=== PATIENT | female | born 1970 ===

== ENCOUNTER 2017-05-25 17:50 | Emergency (ER) | payer OTHER, SELFPAY ==
[2017-05-25 18:11] VITALS: RESP 16
--- NOTE | 2017-05-25 19:32 | ED PDOC ---
HPI: Abdomen Time Seen by Provider: 05/25/17 19:22 Chief Complaint (Nursing): Abdominal Pain History Per: Patient History/Exam Limitations: no limitations Onset/Duration Of Symptoms: Days Current Symptoms Are (Timing): Still Present Location Of Pain/Discomfort: Suprapubic Quality Of Discomfort: Pressure Associated Symptoms: Nausea, Vomiting. denies: Fever, Chills Additional Complaint(s): Hx of fibroids p/w VB since March, states she has been bleeding everyday, but since Tuesday has had to change her pads 4 times, and each time they were moderately soaked. Also feeling weak, tired, doesn't want to get out of bed due to exhaustion. Also w/ occasional nausea and vomiting. No urinary symptoms , no bleeding disorders. Also with cramping lower abdominal pain. Currently on OCPs and Iron pills. Past Medical History Reviewed: Historical Data, Nursing Documentation, Vital Signs Vital Signs: Last Vital Signs Temp 98.4 F 05/25/17 18:07 Pulse 103 H 05/25/17 18:07 Resp 16 05/25/17 18:07 BP 145/80 05/25/17 18:07 Pulse Ox 100 05/25/17 19:33 - Family History Family History: States: Unknown Family Hx - Home Medications Home Medications: Ambulatory Orders Medication Instructions Recorded Ferrous Sulfate 325 mg PO BID #30 tablet 05/25/17 - Allergies Allergies/Adverse Reactions: Allergies Allergy/AdvReac Type Severity Reaction Status Date / Time No Known Allergies Allergy Verified 05/25/17 18:07 Review of Systems ROS Statement: Except As Marked, All Systems Reviewed And Found Negative Gastrointestinal: Positive for: Abdominal Pain Genitourinary Female: Positive for: Vaginal Bleeding Physical Exam - Reviewed Nursing Documentation Reviewed: Yes Vital Signs Reviewed: Yes - Physical Exam Appears: Positive for: Well, Non-toxic, No Acute Distress, Uncomfortable Head Exam: Positive for: ATRAUMATIC, NORMAL INSPECTION, NORMOCEPHALIC Skin: Positive for: Warm, Pallor Eye Exam: Positive for: EOMI, Normal appearance, PERRL ENT: Positive for: Normal ENT Inspection Neck: Positive for: Normal, Painless ROM Cardiovascular/Chest: Positive for: Regular Rate, Rhythm Respiratory: Positive for: CNT, Normal Breath Sounds Gastrointestinal/Abdominal: Positive for: Normal Exam, Soft Back: Positive for: Normal Inspection Extremity: Positive for: Normal ROM Neurologic/Psych: Positive for: Alert, Oriented - Laboratory Results Result Diagrams: 05/25/17 19:55 - ECG O2 Sat by Pulse Oximetry: 100 Medical Decision Making Medical Decision MakinPM A/P: Hx of fibroids p/w VB and abdominal pain, weakness -patient likely bleeding 2/2 to fibroids -will assess for anemia, given patient feeling weak and tired -pending TVUS -will re-eval 10PM EXAM: US Pelvis, Transvaginal CLINICAL HISTORY: 46 years old, female; Signs and symptoms; Menstruation abnormalities; Excessive menstruation; With irregular cycle; Additional info: HX of fibroids, bleeding TECHNIQUE: Real-time transvaginal pelvic ultrasound (complete) with image documentation. Transvaginal imaging was used for better evaluation of the endometrium and adnexa. COMPARISON: No relevant prior studies available. FINDINGS: Uterus/cervix: The uterus is retroverted and heterogeneous in echotexture. Endometrial canal is heterogeneous and measures 1.1 cm. No myometrial mass. Right ovary: Unremarkable. No mass. Normal blood flow. Left ovary: There is a follicle in the left ovary measuring 1.1 cm. Normal blood flow. Free fluid: No free fluid. IMPRESSION: No acute findings. Thank you for allowing us to participate in the care of your patient. Dictated and Authenticated by: Lu Sahni MD 05/25/2017 10:06 PM Eastern Time ([place] & [place]) Patient mildly anemic. Case discussed with Dr. 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 Patient states she is waiting for endometrial biopsy. Patient discharged in good condition. Return precautions discussed, including worsening dizziness, lightheadendss, bleeding, or other concerning symptoms. Disposition - Clinical Impression Clinical Impression: Dysfunctional uterine bleeding - Patient ED Disposition Is Patient to be Admitted: No - Disposition [facility]errals: [facility] [Outside] Disposition: Routine/Home Disposition Time: 22:23 Condition: STABLE Additional Instructions: Debe hacer un seguimiento con castro gineclogo para el final de esta semana. Prescriptions: Ferrous Sulfate 325 mg PO BID #30 tablet Instructions: Heavy Periods, Absent or Irregular Periods Forms: [email or web address] (Sinhala)
[2017-05-25 20:04] LABS: HEMOGLOBIN 9.4 g/dL (12.0-16.0); MEAN CELL VOLUME 85.1 fl (81.0-99.0); MEAN CORPUSCULAR HEMOGLOBIN 28.9 pg (27.0-31.0); RBC 3.26 Mil/uL (3.80-5.20); RED CELL DISTRIBUTION WIDTH 12.9 % (11.5-14.5); WHITE BLOOD COUNT 10.7 K/uL (4.8-10.8)
[2017-05-25 20:25] LABS: PARTIAL THROMBOPLASTIN TIME 24.2 Seconds (25.6-37.1)
[2017-05-25 20:30] LABS: SQUAMOUS EPITHIAL < 1 /hpf (0-5); URINE BACTERIA OCC (<OCC); URINE BILIRUBIN NEGATIVE (NEGATIVE); URINE BLOOD LARGE (NEGATIVE); URINE CLARITY CLOUDY (Clear); URINE COLOR RED (YELLOW); URINE GLUCOSE (UA) NEG (Normal); URINE LEUKOCYTE ESTERASE SMALL Leu/uL (Negative); URINE PROTEIN 100 mg/dL (NEGATIVE); URINE UROBILINOGEN 0.2-1.0 mg/dL (0.2-1.0)
[2017-05-25 22:53] VITALS: BP 133/75; PULSE 80; TEMP 97.6; O2SAT 98
--- NOTE | 2017-05-26 12:05 | US ---
HISTORY: History of fibroids and bleeding. Negative test (concurrent with this examination). Duration of symptoms: 06/21/2017. COMPARISON: None available. TECHNIQUE: Transvaginal only. Real -time technique with 2D, duplex and color Doppler FINDINGS: UTERUS: Measures 5.6 x 7 x 8.0 cm. Normal in size and appearance. No fibroid or other mass lesion seen. ENDOMETRIUM: Measures 10.9 mm in diameter. Heterogeneous echo characteristics with small cystic foci. CERVIX: No cervical abnormality identified. RIGHT OVARY: Measures 1.3 x 1.2 x 1.9 cm. No solid mass. Normal flow. LEFT OVARY: Measures 1.4 x 1.6 x 2.8 cm. No solid mass. Normal flow. Simple cyst 0.6 x 1.1 cm FREE FLUID: No significant free fluid noted. OTHER FINDINGS: None. IMPRESSION: Mildly heterogeneous endometrial echo complex, 10.9 mm maximal thickness. Heterogeneous uterus without focal abnormality.
== END 2017-05-25 22:58 | disposition home or self-care (01) ==
LOC: H.ER 17:50
DX: N93.8 Other specified abnormal uterine and vaginal bleeding (principal); D25.9 Leiomyoma of uterus, unspecified; D64.9 Anemia, unspecified; N92.0 Excessive and frequent menstruation with regular cycle
CPT/HCPCS: 76830; 81003; 81025; 84702; 85027; 85610; 85730; 86850; 86900; 96374; 99285; J2270

== ENCOUNTER 2017-12-13 19:04 | Emergency (ER) | payer SELFPAY ==
[2017-12-13 19:17] VITALS: BP 132/75; PULSE 97; RESP 16; TEMP 98.4; O2SAT 100
[2017-12-13] MEDS ORDERED: Iohexol 240 (50 ml) PO ONE (19:38)
[2017-12-13] MEDS ORDERED: Sodium Chloride 0.9% 1,000 ML IV STA (19:38)
--- NOTE | 2017-12-13 19:40 | ED PDOC ---
HPI: Abdomen Time Seen by Provider: 12/13/17 19:28 Chief Complaint (Nursing): Abdominal Pain Chief Complaint (Provider): abdominal pain, nausea and vomiting History Per: Patient History/Exam Limitations: no limitations Onset/Duration Of Symptoms: Days (x15 days), Worse Since (today) Current Symptoms Are (Timing): Still Present Location Of Pain/Discomfort: Diffuse Associated Symptoms: Nausea, Vomiting, Urinary Symptoms (dysuria). denies: Fever, Chills, Diarrhea, Chest Pain Additional Complaint(s): Nataliia Garrison is a 47 year old female, with a past medical history of fibroids, who presents to the emergency department complaining of abdominal pain onset for x15 days associated with nausea, vomiting and dysuria. Patient reports x2 episodes of vomiting today. Patient states her period began on 11/16 and b leeding stopped yesterday but still has some spotting. She has been taking Advil for the pain but didn't take anything today. She denies any fever, chills, cough, congestion, diarrhea, chest pain, shortness of breath, headache, dizziness, weakness, numbness or tingling. No further medical complaints. PMD: None provided. Past Medical History Reviewed: Historical Data, Nursing Documentation, Vital Signs Vital Signs: Last Vital Signs Temp 98.4 F 12/13/17 19:16 Pulse 97 H 12/13/17 19:16 Resp 16 12/13/17 19:16 BP 132/75 12/13/17 19:16 Pulse Ox 100 12/13/17 19:16 - Medical History PMH: Anemia Other PMH: fibroids - Surgical History Other surgeries: breast cyst removal - Family History Family History: States: Unknown Family Hx - Social History Current smoker - smoking cessation education provided: No Alcohol: None Drugs: Denies - Immunization History Hx Tetanus Toxoid Vaccination: No Hx Influenza Vaccination: No Hx Pneumococcal Vaccination: No - Home Medications Home Medications: Ambulatory Orders Medication Instructions Recorded Ferrous Sulfate 325 mg PO BID #30 tablet 05/25/17 - Allergies Allergies/Adverse Reactions: Allergies Allergy/AdvReac Type Severity Reaction Status Date / Time No Known Allergies Allergy Verified 05/25/17 18:07 Review of Systems ROS Statement: Except As Marked, All Systems Reviewed And Found Negative Constitutional: Negative for: Fever, Chills ENT: Negative for: Nose Congestion Cardiovascular: Negative for: Chest Pain Respiratory: Negative for: Cough, Shortness of Breath Gastrointestinal: Positive for: Nausea, Vomiting (x2), Abdominal Pain. Negative for: Diarrhea Genitourinary Female: Positive for: Dysuria. Negative for: Vaginal Bleeding Neurological: Negative for: Weakness, Numbness (tingling), Headache, Dizziness Physical Exam - Reviewed Nursing Documentation Reviewed: Yes Vital Signs Reviewed: Yes - Physical Exam Appears: Positive for: No Acute Distress Head Exam: Positive for: ATRAUMATIC, NORMAL INSPECTION, NORMOCEPHALIC Skin: Positive for: Normal Color, Warm, Dry Eye Exam: Positive for: Normal appearance, EOMI, PERRL Neck: Positive for: Painless ROM, Supple Cardiovascular/Chest: Positive for: Regular Rate, Rhythm. Negative for: Murmur Respiratory: Positive for: Normal Breath Sounds. Negative for: Respiratory Distress Gastrointestinal/Abdominal: Positive for: Tenderness (diffused ) Back: Positive for: Other (mild left flank tenderness). Negative for: Vertebral Tenderness Extremity: Positive for: Normal ROM (upper and lower extremities). Negative for: Tenderness, Deformity, Swelling Neurologic/Psych: Positive for: Alert, Oriented. Negative for: Motor/Sensory Deficits - Laboratory Results Result Diagrams: 12/13/17 20:19 12/13/17 20:19 Interpretation Of Abn Labs: 7.7 hg - ECG O2 Sat by Pulse Oximetry: 100 (RA) Pulse Ox Interpretation: Normal - Progress ED Course And Treament: 2253: Dr. Sun to fu on imaging. HG 7.7, worse then old. Hx of anemia. Medical Decision Making Medical Decision Making: Time: 19:28 Initial Impression: abdominal pain Initial Plan: --Abd Pelvis PO & IV Contrast [CT] --CMP --Lipase --Urine --Urine dipstick --CBC w/ differential --Sodium Chloride 1,000 ml IV 1,000 mls/hr --Omnipaque 240 50 ml PO --Pepcid 20 mg IVP --Toradol 15 mg IVP --Zofran Inj 4 mg IV --Urine culture --Urinalysis --Reevaluation Scribe Attestation: Documented by Car Epps, acting as a scribe for Rojelio Bell MD. Provider Scribe Attestation: All medical record entries made by the Scribe were at my direction and persona lly dictated by me. I have reviewed the chart and agree that the record accurately reflects my personal performance of the history, physical exam, medical decision making, and the department course for this patient. I have also personally directed, reviewed, and agree with the discharge instructions and disposition. Disposition - Clinical Impression Clinical Impression: Abdominal pain, Anemia - Patient ED Disposition Is Patient to be Admitted: Transfer of Care - Disposition Disposition Time: 22:54 Condition: STABLE Patient Signed Over To: Yossi Sun
[2017-12-13 20:36] LABS: BASO % 0.4 % (0.0-2.0); EOS # 0.1 K/uL (0.0-0.7); EOS % 1.7 % (0.0-4.0); HEMOGLOBIN 7.7 g/dL (12.0-16.0); LYMPH # 1.6 K/uL (1.0-4.3); MEAN CELL VOLUME 83.2 fl (81.0-99.0); MEAN CORPUSCULAR HEMOGLOBIN 27.4 pg (27.0-31.0); MEAN CORPUSCULAR HGB CONC 32.9 g/dL (33.0-37.0); MEAN PLATELET VOLUME 7.7 fl (7.2-11.7); MONO # 0.7 K/uL (0.0-0.8); MONO % 7.8 % (0.0-10.0); NEUT % 71.1 % (50.0-75.0); RBC 2.81 Mil/uL (3.80-5.20); RED CELL DISTRIBUTION WIDTH 15.1 % (11.5-14.5); WHITE BLOOD COUNT 8.5 K/uL (4.8-10.8)
[2017-12-13 20:52] LABS: ALB/GLOB RATIO 1.2 (1.0-2.1); ALBUMIN 3.8 g/dL (3.5-5.0); ALT/SGPT 33 U/L (9-52); AST/SGOT 22 U/L (14-36); BLOOD UREA NITROGEN 6 mg/dl (7-17); CALCIUM 8.3 mg/dL (8.4-10.2); GFR NON-AFRICAN AMERICAN > 60; LIPASE 63 U/L (23-300)
[2017-12-13 20:53] LABS: SQUAMOUS EPITHIAL 3 /hpf (0-5); URINE BACTERIA RARE (<OCC); URINE BLOOD LARGE (NEGATIVE); URINE CLARITY CLOUDY (Clear); URINE COLOR YELLOW (YELLOW); URINE GLUCOSE (UA) NEG (Normal); URINE LEUKOCYTE ESTERASE TRACE Leu/uL (Negative); URINE PROTEIN 100 mg/dL (NEGATIVE); URINE UROBILINOGEN 0.2-1.0 mg/dL (0.2-1.0)
[2017-12-13 20:59] LABS: URINE BILIRUBIN NEGATIVE (NEGATIVE)
[2017-12-13] MEDS ORDERED: Iohexol 300 100 ML IJ ONE (22:34)
[2017-12-13] MEDS ORDERED: Sodium Chloride 0.9% 50 ML IV ONE (22:34)
[2017-12-13] MEDS ORDERED: DiphenhydrAMINE 50 mg/ml Inj IV STA (23:10)
[2017-12-13] MEDS ORDERED: DiphenhydrAMINE 50 mg/ml Inj ONE (23:12)
--- NOTE | 2017-12-13 23:13 | ED PDOC ---
- Laboratory Results Result Diagrams: 12/13/17 20:19 12/13/17 20:19 - ECG O2 Sat by Pulse Oximetry: 100 (RA) Pulse Ox Interpretation: Normal Medical Decision Making Medical Decision Makin:00 --Patient signed out to this provider by Dr. Bell pending CT and reevaluation. 23:33 Abd & Pelvis CT FINDINGS: LUNG BASES: Small atelectasis/infiltrate inferior lingular LIVER: Unremarkable. GALLBLADDER AND BILE DUCTS: Cholelithiasis PANCREAS: Unremarkable. SPLEEN: Unremarkable. ADRENAL GLANDS: Unremarkable. KIDNEYS, URETERS, AND BLADDER: The kidneys appear within normal limits. There is no hydronephrosis or hydroureter. No urinary calculi are seen. STOMACH AND BOWEL: Nonobstructive bowel gas pattern No evidence of acute diverticulitis Prominence of the proximal gastric folds APPENDIX: Appendix visualized and is noninflammatory PERITONEUM: No free fluid. No free air. LYMPH NODES: No lymphadenopathy is evident. VASCULATURE: No evidence of abdominal aortic aneurysm. BONES: No aggressive appearing osseous lesion. No acute osseous pathology evident. MISCELLANEOUS: Left ovarian cyst measuring 4 x 3 cm. No free pelvic fluid IMPRESSION: 1. Left ovarian cyst measuring 4 x 3 cm. 2. No free pelvic fluid 3. Small atelectasis/infiltrate inferior lingular 4. Cholelithiasis 5. Nonobstructive bowel gas pattern 6. Appendix visualized and is noninflammatory 7. No evidence of acute diverticulitis 8. Prominence of the proximal gastric folds. 00:08 --Patient is stable for discharge. Diagnoses are anemia and ovarian cyst. 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 Scribe Attestation: Documented by Kimmy Martinez, acting as a scribe for Yossi Sun MD Provider Scribe Attestation: All medical record entries made by the Scribe were at my direction and personally dictated by me. I have reviewed the chart and agree that the record accurately reflects my personal performance of the history, physical exam, medical decision making, and the department course for this patient. I have also personally directed, reviewed, and agree with the discharge instructions and disposition. Disposition - Clinical Impression Clinical Impression: Anemia, Ovarian cyst - POA Present On Arrival: None - Disposition Disposition: Routine/Home Disposition Time: 00:08 Condition: STABLE Additional Instructions: JOHN CONNOLLY, thank you for letting us take care of you today. Your provider was Yossi Sun MD and you were treated for ABD PAIN, VOMITING,VAGINAL BLEEDING. The emergency medical care you received today was directed at your acute symptoms. If you were prescribed any medication, please fill it and take as directed. It may take several days for your symptoms to reso lve. Return to the Emergency Department if your symptoms worsen, do not improve, or if you have any other problems. Please contact your doctor or call one of the physicians/clinics you have been referred to that are listed on the Patient Visit Information form that is included in your discharge packet. Bring any paperwork you were given at discharge with you along with any medications you are taking to your follow up visit. Our treatment cannot replace ongoing medical care by a primary care pro vider outside of the emergency department. Thank you for allowing the [facility] team to be part of your care today. If you had an X-Ray or CT scan: A Radiologist will review the ED reading if any change in treatment is needed we will contact you. If you had a blood, urine, or wound culture: It will take several days for the results, if any change in treatment is needed we will contact you. If you had an STI test: It will take 48 hours for the results. Please call after 1 week if you have not heard back. Prescriptions: Ferrous Sulfate [Feosol] 325 mg PO TID #30 tab Naproxen [Naprosyn] 500 mg PO Q12 #14 tab Instructions: Ovarian Cysts, Anemia Caused by Low Iron Forms: [employer] (Citizen Of [place])
--- NOTE | 2017-12-14 10:27 | CT ---
Date of service: 12/13/2017 PROCEDURE: CT Abdomen and Pelvis with contrast HISTORY: abd pain COMPARISON: None. TECHNIQUE: Contrast dose: 95 mL Omnipaque 300 Radiation dose: Total exam DLP = 935.08 mGy-cm. This CT exam was performed using one or more of the following dose reduction techniques: Automated exposure control, adjustment of the mA and/or kV according to patient size, and/or use of iterative reconstruction technique. FINDINGS: LOWER THORAX: Linear discoid atelectasis and/or scarring clip and/or calcification here. LIVER: Diffuse fatty liver. No gross lesion or ductal dilatation. GALLBLADDER AND BILE DUCTS: Gallstones. PANCREAS: Unremarkable. No gross lesion or ductal dilatation. SPLEEN: Unremarkable. ADRENALS: Unremarkable. No mass. KIDNEYS AND URETERS: Unremarkable. No hydronephrosis. No solid mass. VASCULATURE: Unremarkable. No aortic aneurysm. No aortic atherosclerotic calcification or mural plaque present. BOWEL: Stool retention especially in cecum and right colon.. No obstruction. No gross mural thickening. APPENDIX: Normal appendix. PERITONEUM: Unremarkable. No free fluid. No free air. LYMPH NODES: Unremarkable. No enlarged lymph nodes. BLADDER: Unremarkable. REPRODUCTIVE: Bilateral adnexal hypodensities left larger than right. Left adnexal 3.8 x 2.8 cm hypodense appearance physiologic dominant follicular and/or other type ovarian cyst are compatible with this. And 05/25/2017 transvaginal ultrasound referenced a simple left ovarian cyst measuring up to 1.1 cm. BONES: No acute fracture. OTHER FINDINGS: Gastric fold relative prominence-yet stomach not particularly distended may be contributing. Findings nonspecific. Correlate with symptomatology. IMPRESSION: Gallstones. No dilated ducts. Diffuse fatty liver. Possible nonspecific gastric fold thickening (versus accentuation from underdistention). Probable left ovarian cyst and/or coalescing ovarian follicles. This can be more sensitively evaluated with pelvic/transvaginal ultrasound as needed. Stool retention right colon. No bowel obstruction Concordant results (preliminary interpretation) provided by [employer].
== END 2017-12-14 00:45 | disposition home or self-care (01) ==
LOC: H.ER 19:04
DX: N83.202 Unspecified ovarian cyst, left side (principal); K80.20 Calculus of gallbladder without cholecystitis without obstruction; D64.9 Anemia, unspecified; K76.0 Fatty (change of) liver, not elsewhere classified
CPT/HCPCS: 74177; 80053; 81003; 81025; 83690; 85025; 87086; 96374; 96375; 99284; J1200; J1885; J2405; J7030; Q9966; Q9967

== ENCOUNTER 2018-02-04 19:50 | Emergency (ER) | payer OTHER, SELFPAY ==
[2018-02-04 20:05] VITALS: O2SAT 100
[2018-02-04] MEDS ORDERED: Sodium Chloride 0.9% 1,000 ML IV STA (20:21)
[2018-02-04 20:49] LABS: BASO % 0.5 % (0.0-2.0); EOS # 0.2 K/uL (0.0-0.7); EOS % 2.2 % (0.0-4.0); HEMOGLOBIN 7.9 g/dL (12.0-16.0); LYMPH # 1.5 K/uL (1.0-4.3); LYMPH % 19.2 % (20.0-40.0); MEAN CELL VOLUME 78.3 fl (81.0-99.0); MEAN CORPUSCULAR HEMOGLOBIN 24.8 pg (27.0-31.0); MEAN CORPUSCULAR HGB CONC 31.7 g/dL (33.0-37.0); MEAN PLATELET VOLUME 7.8 fl (7.2-11.7); MONO # 0.6 K/uL (0.0-0.8); MONO % 6.9 % (0.0-10.0); NEUT # 5.7 K/uL (1.8-7.0); NEUT % 71.2 % (50.0-75.0); RBC 3.19 Mil/uL (3.80-5.20); RED CELL DISTRIBUTION WIDTH 16.1 % (11.5-14.5)
[2018-02-04 21:05] LABS: ALB/GLOB RATIO 1.3 (1.0-2.1); ALBUMIN 3.9 g/dL (3.5-5.0); ALT/SGPT 37 U/L (9-52); AST/SGOT 26 U/L (14-36); BLOOD UREA NITROGEN 8 mg/dl (7-17); CALCIUM 8.4 mg/dL (8.4-10.2); GFR NON-AFRICAN AMERICAN > 60
[2018-02-04 21:43] LABS: SQUAMOUS EPITHIAL < 1 /hpf (0-5); URINE BILIRUBIN NEGATIVE (NEGATIVE); URINE BLOOD LARGE (NEGATIVE); URINE CLARITY CLOUDY (Clear); URINE COLOR YELLOW (YELLOW); URINE GLUCOSE (UA) NEG (NEGATIVE); URINE LEUKOCYTE ESTERASE NEG Leu/uL (Negative); URINE PROTEIN 30 mg/dL (NEGATIVE); URINE UROBILINOGEN 0.2-1.0 mg/dL (0.2-1.0)
--- NOTE | 2018-02-04 21:57 | ED PDOC ---
HPI: Abdomen Time Seen by Provider: 02/04/18 20:11 Chief Complaint (Nursing): GI Problem Chief Complaint (Provider): GI problem History Per: Patient History/Exam Limitations: no limitations Onset/Duration Of Symptoms: Days (2x days) Current Symptoms Are (Timing): Still Present Severity: Moderate Additional Complaint(s): 47 year old female with a past medical history of ovarian cysts and dysfunctional uterine bleeding (for 8x months) presents to the ED for an evaluation of vomiting and diarrhea for 2x days. Patient reports having a ssociated symptoms of fatigue and weakness, that have been worsening since yesterday and heavy menstrual bleeding for the past 3x days. Patient reports that she has been following up in the [facility]. Patient also states that she has been put on iron, and is currently taking it. Patient denies having fevers, cough, shortness of breath, and chest pain. PMD: [place]pe [place]h Abnormal Vaginal Bleeding: Yes Last Menstral Period: today Past Medical History Reviewed: Historical Data, Nursing Documentation, Vital Signs Vital Signs: Last Vital Signs Temp 98.3 F 02/04/18 19:59 Pulse 87 02/04/18 19:59 Resp 16 02/04/18 19:59 BP 124/80 02/04/18 19:59 Pulse Ox 100 02/04/18 19:59 - Medical History PMH: Anemia, Hypercholesterolemia Other PMH: ovarian cysts, dysfunctional uterine bleeding 8x months - Family History Family History: States: No Known Family Hx - Social History Current smoker - smoking cessation education provided: No Alcohol: None Drugs: Denies - Immunization History Hx Tetanus Toxoid Vaccination: No Hx Influenza Vaccination: No Hx Pneumococcal Vaccination: No - Home Medications Home Medications: Ambulatory Orders Medication Instructions Recorded Ferrous Sulfate 325 mg PO BID #30 tablet 05/25/17 Docusate [Colace] 100 mg PO BID PRN #20 cap 12/14/17 Ferrous Sulfate [Feosol] 325 mg PO TID #30 tab 12/14/17 Naproxen [Naprosyn] 500 mg PO Q12 #14 tab 12/14/17 Dicyclomine [Bentyl] 20 mg PO Q12 PRN #20 tab 02/04/18 MedroxyPROGESTERone [Provera] 10 mg PO QAM #1 tab 02/04/18 Ondansetron ODT [Zofran ODT] 4 mg PO Q6 PRN #8 odt 02/04/18 - Allergies Allergies/Adverse Reactions: Allergies Allergy/AdvReac Type Severity Reaction Status Date / Time No Known Allergies Allergy Verified 02/04/18 19:57 Review of Systems ROS Statement: Except As Marked, All Systems Reviewed And Found Negative Constitutional: Positive for: Weakness (fatigue). Negative for: Fever Cardiovascular: Negative for: Chest Pain Respiratory: Negative for: Cough, Shortness of Breath Gastrointestinal: Positive for: Vomiting, Diarrhea Genitourinary Female: Positive for: Vaginal Bleeding (heavy) Physical Exam - Reviewed Nursing Documentation Reviewed: Yes Vital Signs Reviewed: Yes - Physical Exam Appears: Positive for: Well, Non-toxic, No Acute Distress Head Exam: Positive for: ATRAUMATIC, NORMOCEPHALIC Skin: Positive for: Warm, Dry, Pallor Cardiovascular/Chest: Positive for: Regular Rate, Rhythm Respiratory: Positive for: Normal Breath Sounds Gastrointestinal/Abdominal: Positive for: Normal Exam, Soft. Negative for: Tenderness Neurologic/Psych: Positive for: Alert, Oriented (3x) - Laboratory Results Result Diagrams: 02/04/18 20:40 02/04/18 20:40 - ECG O2 Sat by Pulse Oximetry: 100 (RA) Pulse Ox Interpretation: Normal Medical Decision Making Medical Decision Makin:11 Initial impression: 47 year old female with vomiting and diarrhea insetting of heavy menstrual bleeding. Initial plan: * labs * bentyl 20 mg PO * IV NS 1,000 ml IV 1,000 mls/hr * toradol 30 mg IV * zofran inj 4 mg IV * reevaluation 23:11 --Labs reviewed: no significant clinical abnormality with exception of mild anemia - Hgb at 7.9 g/dL. Upon provider reevaluation, patient is (-) tachycardia and reports improvement in symptoms. Patient is medically stable and placed on Provera for 10 days then advised to follow up with clinic. Counseling was provided and all questions were answered regarding diagnosis. There is agreement to discharge plan. Return if symptoms persist or worsen. Clinical Impression: DUB; Gastroenteritis Scribe Attestation: Documented byLeticia Rodriguez and Prema Kaufman, acting as scribes for Yossi Sun MD. Provider Scribe Attestation: All medical record entries made by the Scribe were at my direction and personally dictated by me. I have reviewed the chart and agree that the record accurately reflects my personal performance of the history, physical exam, medical decision making, and the department course for this patient. I have also personally directed, reviewed, and agree with the discharge instructions and disposition. Disposition - Clinical Impression Clinical Impression: DUB (dysfunctional uterine bleeding), Gastroenteritis - Patient ED Disposition Is Patient to be Admitted: No Counseled Patient/Family Regarding: Studies Performed, Diagnosis, Need For Followup, Rx Given - Disposition Referrals: [facility]Outside] [facility] [Outside] Disposition: Routine/Home Disposition Time: 23:11 Condition: STABLE Prescriptions: Dicyclomine [Bentyl] 20 mg PO Q12 PRN #20 tab PRN Reason: abdominal pain/diarrhea MedroxyPROGESTERone [Provera] 10 mg PO QAM #1 tab Ondansetron ODT [Zofran ODT] 4 mg PO Q6 PRN #8 odt PRN Reason: Nausea/Vomiting Instructions: Viral Gastroenteritis, Heavy Periods Forms: [employer] (Indian) Print Language: [place]
[2018-02-04 23:24] VITALS: BP 116/60; PULSE 75; RESP 18; TEMP 98.1
== END 2018-02-04 23:40 | disposition home or self-care (01) ==
LOC: H.ER 19:50
DX: N93.8 Other specified abnormal uterine and vaginal bleeding (principal); K52.9 Noninfective gastroenteritis and colitis, unspecified
CPT/HCPCS: 80053; 81003; 81025; 85025; 96360; 96361; 99284; J1885; J2405; J7030